=== PATIENT | male | born 1960 | race Caucasian/White ===

== ENCOUNTER 2021-08-07 16:19 | Observation (INO) ==
[2021-08-07 16:48] LABS: Basophils # 0.1 K/mcL (0.0-0.2); Basophils % 0.4 %; Eosinophils # 0.2 K/mcL (0.0-0.6); Eosinophils % 1.2 %; Hematocrit 44.4 % (37.5-50.1); Hemoglobin 15.7 g/dL (12.9-16.9); Immature Granulocytes % 1.7 % (0-4); Lymphocytes # 3.9 K/mcL (0.6-4.6); Mean Corpuscular HGB Conc 35.4 g/dL (31.6-35.5); Mean Corpuscular Hemoglobin 32.2 pg (28.0-33.3); Mean Platelet Volume 10.7 fL (9.4-12.4); Monocytes # 0.9 K/mcL (0.0-1.3); Monocytes % 5.6 %; Platelet Count 268 K/mcL (140-400); Red Blood Count 4.88 M/mcL (4.19-5.50); Red Cell Distribution Width 11.9 % (11.5-14.5); Segmented Neutrophils % 66.1 %; White Blood Count 15.5 K/mcL (4.3-11.1)
[2021-08-07 16:53] LABS: Neutrophils # 10.3 K/mcL (1.6-8.9)
[2021-08-07 17:07] LABS: Alanine Aminotransferase 32 Units/L (7-52); Albumin 3.7 g/dL (3.5-5.7); Albumin/Globulin Ratio 1.3 (1.1-2.2); Alkaline Phosphatase 57 Units/L (34-104); Aspartate Amino Transferase 18 Units/L (13-39); BUN/Creatinine Ratio 24 (6-26); Bilirubin,Total 0.2 mg/dL (0.3-1.0); Blood Urea Nitrogen 19 mg/dL (8-23); Carbon Dioxide 27 mEq/L (23-29); Chloride 97 mEq/L (98-107); Globulin 2.9 g/dL (2.4-3.5); Glucose 394 mg/dL (70-105); Osmolality,Calculated 287 (280-300); Potassium 4.1 mEq/L (3.5-5.1); Sodium 129 mEq/L (136-145); Total Protein 6.6 g/dL (6.4-8.9); eGFR For African Americans > 60 (> 60); eGFR For Non-African Americans > 60 (> 60)
[2021-08-07] MEDS ORDERED: Vancomycin 1,000 MG in D5% in Water 250 ML IVPB ONE (17:29)
[2021-08-07] MEDS ORDERED: Doxycycline 100 MG CAPSULE PO ONE (17:29)
[2021-08-07] MEDS ORDERED: Ipratropium/Albuterol Neb 3 ML IH ONE ×2 (17:30→20:46)
[2021-08-07] MEDS ORDERED: Insulin Regular, Human 100 UNIT/ML SUBQ ONE (19:49)
[2021-08-07] MEDS ORDERED: D5% in Water 1,000 ML IVC PRN (20:46)
[2021-08-07] MEDS ORDERED: Mag Hydrox/Al Hydrox/Simeth 30 ML UDC PO PRN (20:46)
[2021-08-07] MEDS ORDERED: Ondansetron ODT 4 MG TAB.RAPDIS SL PRN (20:46)
[2021-08-07] MEDS ORDERED: Dextrose Gel 15 GM/37.5 ML TUBE PO PRN ×2 (20:46)
[2021-08-07] MEDS ORDERED: *HR* Dextrose 50 % in Water (Syg) 50 ML SYRINGE IVP PRN (20:46)
[2021-08-07] MEDS ORDERED: Acetaminophen 325 MG TABLET PO PRN (20:46)
[2021-08-07] MEDS ORDERED: Naloxone 0.4 MG/ML INJ IVP PRN (20:46)
[2021-08-07] MEDS: Ipratropium/Albuterol Neb 3 ML IH SCH (20:59)
[2021-08-07] MEDS ORDERED: MethylPREDNISolone 40 MG/ML VIAL IVP ONE (21:00)
[2021-08-07] MEDS: Pregabalin 75 MG CAPSULE PO SCH (21:58)
[2021-08-07] MEDS: diazePAM 2 MG TABLET PO SCH (21:58)
[2021-08-07] MEDS: GuaiFENesin/Dextromethorphan TABLET PO SCH (21:58)
[2021-08-07] MEDS: FLUoxetine 20 MG CAPSULE PO SCH (21:58)
[2021-08-07] MEDS: Ibuprofen 800 MG TABLET PO SCH (22:09)
[2021-08-08] MEDS ORDERED: traZODone 50 MG TABLET PO STA (00:17)
[2021-08-08] MEDS: Insulin LISPRO 300 UNITS/3 ML VIAL SUBQ SCH ×4 (00:31→17:26)
[2021-08-08] MEDS: Ipratropium/Albuterol Neb 3 ML IH SCH ×6 (00:32→19:37)
[2021-08-08 05:17] LABS: Basophils # 0.1 K/mcL (0.0-0.2); Basophils % 0.3 %; Eosinophils % 0.1 %; Hematocrit 42.6 % (37.5-50.1); Hemoglobin 14.9 g/dL (12.9-16.9); Immature Granulocytes % 1.8 % (0-4); Lymphocytes # 1.5 K/mcL (0.6-4.6); Lymphocytes % 10.1 %; Mean Corpuscular Hemoglobin 32.5 pg (28.0-33.3); Mean Platelet Volume 11.1 fL (9.4-12.4); Monocytes # 0.2 K/mcL (0.0-1.3); Monocytes % 1.1 %; Neutrophils # 13.1 K/mcL (1.6-8.9); Platelet Count 248 K/mcL (140-400); Red Blood Count 4.58 M/mcL (4.19-5.50); Red Cell Distribution Width 11.9 % (11.5-14.5); Segmented Neutrophils % 86.6 %; White Blood Count 15.1 K/mcL (4.3-11.1)
[2021-08-08 05:27] LABS: BUN/Creatinine Ratio 18 (6-26); Blood Urea Nitrogen 18 mg/dL (8-23); Calcium 9.1 mg/dL (8.6-10.3); Carbon Dioxide 28 mEq/L (23-29); Chloride 100 mEq/L (98-107); Glucose 371 mg/dL (70-105); Osmolality,Calculated 297 (280-300); Potassium 5.1 mEq/L (3.5-5.1); Sodium 135 mEq/L (136-145); eGFR For African Americans > 60 (> 60); eGFR For Non-African Americans > 60 (> 60)
[2021-08-08] MEDS: *HR* Enoxaparin 40 MG/0.4 ML SYRINGE SQ SCH (06:17)
[2021-08-08] MEDS: Ibuprofen 800 MG TABLET PO SCH ×2 (07:51→20:07)
[2021-08-08] MEDS: GuaiFENesin/Dextromethorphan TABLET PO SCH ×2 (07:51→20:07)
[2021-08-08] MEDS: Pregabalin 75 MG CAPSULE PO SCH ×2 (07:51→20:06)
[2021-08-08] MEDS: diazePAM 2 MG TABLET PO SCH ×2 (07:52→20:07)
[2021-08-08] MEDS: FLUoxetine 20 MG CAPSULE PO SCH ×2 (07:52→20:05)
[2021-08-08] MEDS: risperiDONE 1 MG TABLET PO SCH (08:04)
[2021-08-08] MEDS: Loratadine 10 MG TABLET PO SCH (08:04)
[2021-08-08 08:43] LABS: Adenovirus Not Detected (Not Detect); Bordetella Pertussis Not Detected (Not Detect); Chlamydophila pneumoniae Not Detected (Not Detect); Coronavirus 229E Not Detected (Not Detect); Coronavirus HKU1 Not Detected (Not Detect); Coronavirus NL63 Not Detected (Not Detect); Coronavirus OC43 Not Detected (Not Detect); Human Metapneumovirus Not Detected (Not Detect); Human Rhinovirus/Enterovirus Not Detected (Not Detect); Influenza A Subtype 2009 H1 Not Detected (Not Detect); Influenza B Not Detected (Not Detect); Mycoplasma pneumoniae Not Detected (Not Detect); Parainfluenza Virus 1 Not Detected (Not Detect); Parainfluenza Virus 2 Not Detected (Not Detect); Parainfluenza Virus 3 Not Detected (Not Detect); Parainfluenza Virus 4 Not Detected (Not Detect); Respiratory Syncytial Virus Not Detected (Not Detect); SARS-CoV-2 Not Detected (Not Detect)
[2021-08-08 10:17] LABS: Estimated Average Glucose 240 mg/dl
[2021-08-08] MEDS: *HR* HYDROcodone/Acet 7.5/325 mg TABLET PO PRN ×3 (11:02→23:25)
[2021-08-08 14:39] LABS: Bilirubin,Urine Negative (Negative); Blood,Urine Negative (Negative); Clarity,Urine Clear (Clear); Color,Urine Yellow (Yellow); Glucose,Urine (UA) >=1000 mg/dL (Normal); Ketones,Urine Negative (Negative); Leukocyte Esterase,Urine Negative (Negative); Nitrite,Urine Negative (Negative); PH,Urine 5.5 pH Units (5.0-8.0); Protein,Urine Negative (Neg-Trace); Specific Gravity,Urine 1.025 (1.010-1.025); Urobilinogen,Urine Normal (Normal)
[2021-08-08] MEDS ORDERED: Perflutren Lipid Microsphere 1.3 ML in 0.9 % Sodium Chloride 8.7 ML IVP PRN (14:44)
[2021-08-08 14:56] LABS: RBC,Urine 0-3 per hpf (0-3); WBC,Urine 0-3 per hpf (0-3)
[2021-08-08] MEDS: MethylPREDNISolone 40 MG/ML VIAL IVP SCH ×2 (17:26→23:26)
[2021-08-08] MEDS ORDERED: *HR* Dextrose 50 % in Water (Syg) 50 ML SYRINGE IVP PRN (23:16)
[2021-08-08] MEDS ORDERED: Dextrose Gel 15 GM/37.5 ML TUBE PO PRN ×2 (23:16)
[2021-08-08] MEDS ORDERED: D5% in Water 1,000 ML IVC PRN (23:16)
[2021-08-08] MEDS ORDERED: Insulin LISPRO 300 UNITS/3 ML VIAL SUBQ SCH (23:30)
[2021-08-09] MEDS: *HR* Enoxaparin 40 MG/0.4 ML SYRINGE SQ SCH (04:50)
[2021-08-09 05:08] LABS: Hematocrit 41.8 % (37.5-50.1); Hemoglobin 14.3 g/dL (12.9-16.9); Mean Corpuscular HGB Conc 34.2 g/dL (31.6-35.5); Mean Corpuscular Hemoglobin 32.4 pg (28.0-33.3); Mean Corpuscular Volume 94.6 fL (83.0-100.0); Platelet Count 240 K/mcL (140-400); Red Blood Count 4.42 M/mcL (4.19-5.50); Red Cell Distribution Width 12.2 % (11.5-14.5); White Blood Count 17.5 K/mcL (4.3-11.1)
[2021-08-09 05:25] LABS: BUN/Creatinine Ratio 22 (6-26); Blood Urea Nitrogen 18 mg/dL (8-23); Calcium 8.6 mg/dL (8.6-10.3); Carbon Dioxide 24 mEq/L (23-29); Chloride 102 mEq/L (98-107); Glucose 374 mg/dL (70-105); Osmolality,Calculated 291 (280-300); Potassium 5.5 mEq/L (3.5-5.1); Sodium 132 mEq/L (136-145); eGFR For African Americans > 60 (> 60); eGFR For Non-African Americans > 60 (> 60)
[2021-08-09] MEDS: *HR* HYDROcodone/Acet 7.5/325 mg TABLET PO PRN (05:35)
[2021-08-09 05:42] VITALS: RESP 18
[2021-08-09 07:46] VITALS: BP 123/74; PULSE 78; TEMP 97.8
[2021-08-09] MEDS: MethylPREDNISolone 40 MG/ML VIAL IVP SCH (07:58)
[2021-08-09] MEDS: diazePAM 2 MG TABLET PO SCH (07:58)
[2021-08-09] MEDS: Loratadine 10 MG TABLET PO SCH (07:59)
[2021-08-09] MEDS: FLUoxetine 20 MG CAPSULE PO SCH (07:59)
[2021-08-09] MEDS: Pregabalin 75 MG CAPSULE PO SCH (07:59)
[2021-08-09] MEDS: Ibuprofen 800 MG TABLET PO SCH (07:59)
[2021-08-09] MEDS: GuaiFENesin/Dextromethorphan TABLET PO SCH (07:59)
[2021-08-09] MEDS: risperiDONE 1 MG TABLET PO SCH (07:59)
[2021-08-09] MEDS: Insulin LISPRO 300 UNITS/3 ML VIAL SUBQ SCH ×2 (08:00→12:04)
[2021-08-09] MEDS: Ipratropium/Albuterol Neb 3 ML IH SCH ×2 (08:07→12:46)
[2021-08-09 09:51] LABS: Amphetamine Screen,Urine Negative ng/mL (Cutoff=1000); Barbiturate Screen,Urine Negative ng/mL (Cutoff=200); Benzodiazepines Screen,Urine Negative ng/mL (Cutoff=200); Cannabinoid Screen,Urine Positive ng/mL (Cutoff = 50); Cocaine Screen,Urine Negative ng/mL (Cutoff= 300); Opiate Screen,Urine Positive ng/mL (Cutoff=300); Phencyclidine Screen,Urine Negative ng/mL (Cutoff=25)
[2021-08-09 12:47] VITALS: O2SAT 96
== END 2021-08-09 14:03 | disposition home or self-care (01) ==
LOC: INPGRE 16:19 → EMEROOGRE 16:19 → INPGRE 20:45
PROVIDERS: ADMIT Family Medicine; ATTEND Family Medicine